=== PATIENT | female | born 1960 | race Caucasian/White ===

== ENCOUNTER 2018-12-11 04:55 | Inpatient (IN) ==
--- NOTE | 2018-12-11 05:02 | Emergency Department Note ---
Disposition Clinical Impression: Acute appendicitis Qualifiers: Acute appendicitis type: unspecified acute appendicitis type Qualified Code(s): K35.80 - Unspecified acute appendicitis Disposition: Admitted As Inpatient Condition: Fair Time of Disposition: 05:53 (accepted by Dr. Cleo Fisher) General Adult HPI - General Stated complaint: right side pain Time Seen by Provider: 12/11/18 05:00 Source: patient Mode of arrival: EMS Limitations: no limitations Nursing Notes Reviewed: Yes Vital Signs Reviewed: Yes - History of Present Illness HPI Narrative: Patient is a 58-year-old female presenting for abdominal pain. Patient with past history of CVA not currently on anti-coagulant medicine or Plavix, hypertension not currently on any medications. Symptoms started approximately 3 days ago, has continued to worsen specifically located to the right lower q uadrant described to be a sharp shooting pain radiating into the back. Pain has been constant but worsening. She has had associated nausea without vomiting no fevers or chills. Normal urination without dysuria or hematuria, normal bowel movements without diarrhea. She denies any change in appetite. She states that this morning she began to have significant increase in pain to the right lower q uadrant and was concerned so called EMS for further evaluation. No similar symptoms in the past. Has had a total hysterectomy. No further abdominal surgeries per patient. No change with symptoms with food. - Related Data Allergies Allergy/AdvReac Type Severity Reaction Status Date / Time No Known Allergies Allergy Verified 08/06/18 18:20 All systems ED: reviewed and negative except as stated. Review of Systems: As Per HPI Constitutional: Denies: fever, chills ENT ED: Denies: congestion Cardiovascular: Denies: chest pain, palpitations Respiratory: Denies: cough, dyspnea Gastrointestinal: Reports: abdominal pain, nausea. Denies: vomiting, diarrhea, hematemesis, melena, hematochezia Genitourinary: Denies: urgency, dysuria, frequency, hematuria Musculoskeletal: Reports: back pain Integumentary: Denies: rash Neurological: Denies: headache, weakness, numbness, confusion Endocrine: Denies: fatigue Past Medical History - Past Medical History Medical history: Reports: CVA, other Psychiatric history: Reports: anxiety - Social History Smoking Status: Current every day smoker Smokeless Tobacco Status: No Alcohol use: Reports: none Drug use: Reports: none Physical Exam General: Conversant. No apparent distress. Follow commands. Appears stated age. Neck: No JVD. Trachea midline. Neck supple. Eyes: PERRL. No scleral icterus. HENT: Normocephalic and atraumatic. Moist mucus membranes. Cardiovascular: Regular rate and rhythm. Normal S1 and S2. No murmurs appreciated. Normal capillary refill. Extremities well perfused with 2+ distal pulses bilaterally. No edema. Pulmonary: Normal and equal breath sounds bilaterally, anteriorly and posteriorly. No wheezes, rales, or rhonchi. Not in respiratory distress. Speaks in full sentences. Abdomen: Soft, nondistended, positive McBurney's point tenderness, with guarding and rebound tenderness, positive Rovsing sign. No bruits or masses. Positive CVA tenderness on the right. Neuro: Alert and oriented x3. No slurred speech. No focal deficits noted. Skin: No rashes noted on visualized skin. Musculoskeletal: No bony abnormalities visualized. Moves all extremities. Psych: Normal mood. Pleasant. Makes appropriate eye contact. - General Limitations: no limitations Course Vital Signs Temperature 98.8 F 12/11/18 04:57 Pulse Rate 100 12/11/18 04:57 Respiratory Rate 18 12/11/18 04:57 Blood Pressure 121/73 12/11/18 04:57 O2 Sat by Pulse Oximetry 96 12/11/18 04:57 Temperature 98.8 F 12/11/18 04:57 Pulse Rate 94 12/11/18 05:51 Respiratory Rate 16 12/11/18 05:51 Blood Pressure 129/70 12/11/18 05:51 O2 Sat by Pulse Oximetry 96 12/11/18 05:51 Oxygen Delivery Oxygen Delivery Room Air Medical Decision Making - [facility] Narrative Medical decision making narrative: Patient is a 50-year-old female who presents with acute abdominal pain. Patient states symptoms began approximately 3 days ago worse overnight. Has had nausea without vomiting. No fevers or chills. On arrival, patient appears uncomfortable but nontoxic, in no acute distress with normal vital signs. Examination shows positive tenderness to the right lower quadrant at the McBurney's point area, she also has positive Rovsing sign, with CVA tenderness on the right. She appears non-peritoneal on examination. Differential diagnosis includes nephrolithiasis, appendicitis, diverticulitis and colitis. 1 L of fluids was given as well as Zofran and fentanyl. CT of the abdomen and pelvis without IV contrast was performed, this was reviewed with the patient as well as my attending, which shows acute appendicitis with concern for possible perforation as well as periappendiceal abscess. Patient does have a slight leukocytosis at 14.3. I spoke with the on-call general surgeon, Dr. Cleo Fisher, she states the patient at this point in time is able to be admitted to her surgical services, she agrees with starting Zosyn. She will be admitted to the surgical services for further surgical intervention and treatment. Patient otherwise has remained stable. I did discuss the CT findings as well as need for admission with the patient, she is agreeable. - Medical Records Medical records reviewed: Yes I reviewed the patient's medical records. - Lab Data Lab results reviewed: Yes I reviewed the patient's lab results. Result diagrams: 12/11/18 05:15 Lab Results 12/11/18 Range/Units 05:15 WBC 14.3 H (4.3-11.1) K/mcL RBC 4.16 (3.82-4.97) M/mcL Hgb 12.7 (11.5-15.4) g/dL Hct 38.4 (35.3-44.9) % MCV 92.3 (83.0-100.0) fL MCH 30.5 (28.0-33.3) pg MCHC 33.1 (31.6-35.5) g/dL RDW 12.7 (11.5-14.5) % Plt Count 251 (140-400) K/mcL MPV 9.5 (9.4-12.4) fL Immature Gran % 0.6 (0-4) % Seg Neutrophils % 85.0 % Lymphocytes % 6.8 % Monocytes % 7.1 % Eosinophils % 0.4 % Basophils % 0.1 % Neutrophils # 12.1 H (1.6-8.9) K/mcL Lymphocytes # 1.0 (0.6-4.6) K/mcL Monocytes # 1.0 (0.0-1.3) K/mcL Eosinophils # 0.1 (0.0-0.6) K/mcL Basophils # 0.0 (0.0-0.2) K/mcL - Radiology Data Radiology results reviewed: Yes I reviewed the patient's radiology results. Abdomen/Pelvis CT 12/11/18 05:29 IMPRESSION: 1. Findings are consistent with acute appendicitis, with a suspected small focal contained perforation within the right lower quadrant and an adjacent 15 x 15 mm periappendiceal abscess within the right lower quadrant. 2. Persistent nonspecific 13 mm soft tissue attenuation nodular lesion exophytic off the left kidney lower pole. Suggest more detailed characterization with a follow-up pre and postcontrast renal mass protocol CT or MRI study. D/ / Marquis Lopez MD / Marquis Lopez MD Interpreting Provider: Marquis Lopez MD
[2018-12-11] MEDS ORDERED: Ondansetron 4 MG/2 ML VIAL IVP ONE (05:10)
[2018-12-11] MEDS ORDERED: 0.9 % Sodium Chloride 1,000 ML IVC ONE (05:10)
[2018-12-11] MEDS ORDERED: *HR* FentaNYL (PF) 100 MCG/2 ML VIAL IVP ONE (05:11)
[2018-12-11 05:34] LABS: Eosinophils % 0.4 %; Hematocrit 38.4 % (35.3-44.9); Hemoglobin 12.7 g/dL (11.5-15.4); Immature Granulocytes % 0.6 % (0-4); Lymphocytes % 6.8 %; Mean Corpuscular HGB Conc 33.1 g/dL (31.6-35.5); Mean Corpuscular Hemoglobin 30.5 pg (28.0-33.3); Mean Corpuscular Volume 92.3 fL (83.0-100.0); Mean Platelet Volume 9.5 fL (9.4-12.4); Monocytes % 7.1 %; Platelet Count 251 K/mcL (140-400); Red Blood Count 4.16 M/mcL (3.82-4.97); Red Cell Distribution Width 12.7 % (11.5-14.5); White Blood Count 14.3 K/mcL (4.3-11.1)
[2018-12-11 05:35] LABS: Basophils % 0.1 %; Eosinophils # 0.1 K/mcL (0.0-0.6); Neutrophils # 12.1 K/mcL (1.6-8.9)
[2018-12-11] MEDS ORDERED: Piperacillin/Tazobactam 3.375 GM in 0.9 % Sodium Chloride Mini Bag 100 ML IVPB ONE (05:49)
[2018-12-11 06:01] LABS: Alanine Aminotransferase 7 Units/L (7-52); Albumin 3.9 g/dL (3.5-5.7); Albumin/Globulin Ratio 1.4 (1.1-2.2); Alkaline Phosphatase 68 Units/L (34-104); BUN/Creatinine Ratio 13 (6-26); Bilirubin,Direct 0.2 mg/dL (0.0-0.2); Bilirubin,Indirect 0.5 mg/dL (0.0-1.2); Bilirubin,Total 0.7 mg/dL (0.3-1.0); Blood Urea Nitrogen 11 mg/dL (6-20); Calcium 8.9 mg/dL (8.6-10.3); Carbon Dioxide 20 mEq/L (23-29); Chloride 103 mEq/L (98-107); Globulin 2.7 g/dL (2.4-3.5); Glucose 140 mg/dL (70-105); Lipase < 3 Units/L (11-82); Osmolality,Calculated 280 (280-300); Potassium 3.1 mEq/L (3.5-5.1); Sodium 134 mEq/L (136-145); Total Protein 6.6 g/dL (6.4-8.9); eGFR For African Americans > 60 (> 60); eGFR For Non-African Americans > 60 (> 60)
--- NOTE | 2018-12-11 06:02 | Emergency Department Note ---
Disposition Clinical Impression: Acute appendicitis Qualifiers: Acute appendicitis type: unspecified acute appendicitis type Qualified Code(s): K35.80 - Unspecified acute appendicitis Disposition: Admitted As Inpatient Condition: Fair Time of Disposition: 05:53 General Adult HPI - General Chief complaint: ED Abdominal Pain Stated complaint: right side pain Time Seen by Provider: 12/11/18 05:00 Source: patient Mode of arrival: EMS Limitations: no limitations Nursing Notes Reviewed: Yes Vital Signs Reviewed: Yes - History of Present Illness Pain Scale: 10 - Related Data Allergies Allergy/AdvReac Type Severity Reaction Status Date / Time No Known Allergies Allergy Verified 08/06/18 18:20 Past Medical History - Past Medical History Medical history: Reports: CVA, other Psychiatric history: Reports: anxiety - Social History Smoking Status: Current every day smoker Smokeless Tobacco Status: No Alcohol use: Reports: none Drug use: Reports: none Physical Exam - General Limitations: no limitations General appearance: alert, in no apparent distress Course Vital Signs Temperature 98.8 F 12/11/18 04:57 Pulse Rate 100 12/11/18 04:57 Respiratory Rate 18 12/11/18 04:57 Blood Pressure 121/73 12/11/18 04:57 O2 Sat by Pulse Oximetry 96 12/11/18 04:57 Temperature 98.8 F 12/11/18 04:57 Pulse Rate 94 12/11/18 05:51 Respiratory Rate 16 12/11/18 05:51 Blood Pressure 129/70 12/11/18 05:51 O2 Sat by Pulse Oximetry 96 12/11/18 05:51 Oxygen Delivery Oxygen Delivery Room Air Medical Decision Making - Medical Records Medical records reviewed: Yes I reviewed the patient's medical records. - Lab Data Lab results reviewed: Yes I reviewed the patient's lab results. Result diagrams: 12/11/18 05:15 12/11/18 05:15 Lab Results 12/11/18 12/11/18 Range/Units 05:15 05:15 WBC 14.3 H (4.3-11.1) K/mcL RBC 4.16 (3.82-4.97) M/mcL Hgb 12.7 (11.5-15.4) g/dL Hct 38.4 (35.3-44.9) % MCV 92.3 (83.0-100.0) fL MCH 30.5 (28.0-33.3) pg MCHC 33.1 (31.6-35.5) g/dL RDW 12.7 (11.5-14.5) % Plt Count 251 (140-400) K/mcL MPV 9.5 (9.4-12.4) fL Immature Gran % 0.6 (0-4) % Seg Neutrophils % 85.0 % Lymphocytes % 6.8 % Monocytes % 7.1 % Eosinophils % 0.4 % Basophils % 0.1 % Neutrophils # 12.1 H (1.6-8.9) K/mcL Lymphocytes # 1.0 (0.6-4.6) K/mcL Monocytes # 1.0 (0.0-1.3) K/mcL Eosinophils # 0.1 (0.0-0.6) K/mcL Basophils # 0.0 (0.0-0.2) K/mcL Sodium 134 L (136-145) mEq/L Potassium 3.1 L (3.5-5.1) mEq/L Chloride 103 (98-107) mEq/L Carbon Dioxide 20 L (23-29) mEq/L BUN 11 (6-20) mg/dL Creatinine 0.84 (0.60-1.20) mg/dL Est GFR ( Amer) > 60 (> 60) Est GFR (Non-Af Amer) > 60 (> 60) BUN/Creatinine Ratio 13 (6-26) Glucose 140 H (70-105) mg/dL Calculated Osmolality 280 (280-300) Calcium 8.9 (8.6-10.3) mg/dL Total Bilirubin 0.7 (0.3-1.0) mg/dL Direct Bilirubin 0.2 (0.0-0.2) mg/dL Indirect Bilirubin 0.5 (0.0-1.2) mg/dL ALT 7 (7-52) Units/L Alkaline Phosphatase 68 (34-104) Units/L Serum Total Protein 6.6 (6.4-8.9) g/dL Albumin 3.9 (3.5-5.7) g/dL Globulin 2.7 (2.4-3.5) g/dL Albumin/Globulin Ratio 1.4 (1.1-2.2) Lipase < 3 L (11-82) Units/L - Radiology Data Radiology results reviewed: Yes I reviewed the patient's radiology results. Abdomen/Pelvis CT 12/11/18 05:29 IMPRESSION: 1. Findings are consistent with acute appendicitis, with a suspected small focal contained perforation within the right lower quadrant and an adjacent 15 x 15 mm periappendiceal abscess within the right lower quadrant. 2. Persistent nonspecific 13 mm soft tissue attenuation nodular lesion exophytic off the left kidney lower pole. Suggest more detailed characterization with a follow-up pre and postcontrast renal mass protocol CT or MRI study. D/ / Marquis Lopez MD / Marquis Lopez MD Interpreting Provider: Marquis Lopez MD Critical Care Time Critical Care Time: Yes Total Critical Care Time: 35 Attestation: Critical care performed: Time is exclusive of separately billable procedures. Time includes: direct patient care, patient reassessment, coordination of patient care, interpretation of data (laboratory data, radiology data, and respiratory data), review of patient's medical records, medical consultation and documentation of patient care. Procedures included in critical care time: Procedures excluded from critical care time: Attestation Statement - Attestation Attestation: I, Lv Joseph MD, personally evaluated this patient and discussed their management with the resident physician. I reviewed the resident's note and agree with the documented findings, medical decision making, and plan of care. 58-year-old female presents to the emergency department with a complaint of right lower quadrant abdominal pain which started 3 days prior to arrival. Pain has been constant and has gotten progressively worse since onset. It is not affected by eating. There has been some nausea but no vomiting. No diarrhea. No fever. No melena, hematemesis, or hematochezia. No anorexia. No urinary symptoms. No history of kidney stones. She has had a complete hysterectomy in the past. On examination patient is a well-developed well-nourished well-appearing female in no acute distress. She is alert and oriented 3. There is no cyanosis or diaphoresis. Breath sounds are clear and equal bilaterally. Heart regular rate and rhythm. Abdomen is soft with present bowel sounds. There is marked right lower quadrant tenderness on direct palpation with guarding and rebound tenderness. Mild right CVA tenderness. WBC 14.3. CT the abdomen and pelvis shows acute appendicitis with a small contained perforation and periappendiceal abscess. Patient was given IV Zosyn. The surgeon monument mason, Dr. Cleo Fisher, was consulted and accepted admission of the patient to her service.
[2018-12-11 06:44] LABS: Aspartate Amino Transferase 10 Units/L (13-39)
[2018-12-11 06:56] LABS: Bilirubin,Urine Negative (Negative); Blood,Urine Small (Negative); Clarity,Urine Clear (Clear); Color,Urine Yellow (Yellow); Glucose,Urine (UA) Normal (Normal); Ketones,Urine Negative (Negative); Leukocyte Esterase,Urine Trace (Negative); Nitrite,Urine Negative (Negative); PH,Urine 6.5 pH Units (5.0-8.0); Protein,Urine Negative (Neg-Trace); Specific Gravity,Urine < 1.005 (1.010-1.025); Urobilinogen,Urine Normal (Normal)
[2018-12-11 06:58] LABS: Bacteria,Urine None Seen per hpf (None-Few); Hyaline Casts,Urine None Seen per lpf (None-Few); RBC,Urine 0-3 per hpf (0-3); Squamous Epithelial Cell,Urine Many per lpf (None-Few)
--- NOTE | 2018-12-11 08:29 | Acute Care Surgery H&P ---
Date of Encounter: 12/11/18 Time of Encounter: 08:29 Assessment and Plan (1) Acute appendicitis Current Visit: Yes Status: Acute The assessment and plan as outlined above was discussed with the patient and/or family members who expressed understanding and agreement. All questions were answered. I explained to the patient she has evidence of acute appendicitis with what looks like a developing phlegmon. I think the most appropriate course to be sta rting IV fluids and start IV antibiotics to help decrease the inflammation in the right lower quadrant. Discussed with the patient and she agrees with the above plan. Qualifiers: Acute appendicitis type: with localized peritonitis Appendicitis gangrene presence: without gangrene Appendicitis perforation presence: without perforation Appendicitis abscess presence: without abscess Qualified Code(s): K35.30 - Acute appendicitis with localized peritonitis, without perforation or gangrene History of Present Illness Chief complaint: RIght lower abdominal pain HPI: Ms. Lancaster is a 58 year old female with a past medical history significant for coronary artery disease, [place], CVA who presents to [facility] with a three-day history of right lower quadrant abdominal pain. Patient states that the pain is continuous and radiates to the mid back. She admits to nausea but denies any vomiting and denies any diarrhea or constipation. She normally has a bowel movement once a day and her last bowel movement was the previous day. She denies any rectal bleeding because of her persistent pain was transferred to [facility] from [facility] for further evaluation. CT scan showing evidence of appendicitis with possible phlegmon. Past Med Surg Social Fam HX - Past Medical History Medical history: CVA, other Additional medical history: Colitis. Psychiatric history: anxiety - Social History Smoking Status: Current every day smoker Packs per day: 1 Smokeless Tobacco Status: No Alcohol use: none Drug use: none Medications and Allergies Allergy/AdvReac Type Severity Reaction Status Date / Time No Known Allergies Allergy Verified 08/06/18 18:20 Review of Systems All systems PM: reviewed and no additional remarkable complaints except as stated All systems PM: The remainder of the systems were reviewed and are negative General Surgery Exam Initial Vital Signs Temp Pulse Resp BP Pulse Ox 98.8 F 100 18 121/73 96 12/11/18 04:57 12/11/18 04:57 12/11/18 04:57 12/11/18 04:57 12/11/18 04:57 - General physical appearance well nourished, no distress - Respiratory normal expansion, normal respiratory effort, clear to auscultation - Cardiovascular Cardiovascular exam: Present: RRR, no murmurs/rubs/gallops - Abdomen Abdomen general surgery: Present: bowel sounds present, soft, tender (Tenderness to palpation in the right lower abdomen) - Neurologic Present: CN 2-12 grossly intact - Musculoskeletal Present: other (no clubbing, cyanosis, or edema) - Psychiatric Psychiatric general surgery: Present: A&Ox3, oriented to person, oriented to place, oriented to time Results - Labs 12/11/18 05:15 12/11/18 05:15 Abnormal lab results WBC 14.3 K/mcL (4.3-11.1) H 12/11/18 05:15 Neutrophils # 12.1 K/mcL (1.6-8.9) H 12/11/18 05:15 Sodium 134 mEq/L (136-145) L 12/11/18 05:15 Potassium 3.1 mEq/L (3.5-5.1) L 12/11/18 05:15 Carbon Dioxide 20 mEq/L (23-29) L 12/11/18 05:15 Glucose 140 mg/dL (70-105) H 12/11/18 05:15 AST 10 Units/L (13-39) L 12/11/18 05:15 Lipase < 3 Units/L (11-82) L 12/11/18 05:15 Ur Specific Finley < 1.005 (1.010-1.025) L 12/11/18 06:40 Urine Blood Small (Negative) H 12/11/18 06:40 Ur Leukocyte Esterase Trace (Negative) H 12/11/18 06:40 Urine Microscopic WBC 3-5 per hpf (0-3) H 12/11/18 06:40 Ur Squamous Epith Cells Many per lpf (None-Few) H 12/11/18 06:40 Diabetes panel 12/11/18 Range/Units 05:15 Sodium 134 L (136-145) mEq/L Potassium 3.1 L (3.5-5.1) mEq/L Chloride 103 (98-107) mEq/L Carbon Dioxide 20 L (23-29) mEq/L BUN 11 (6-20) mg/dL Creatinine 0.84 (0.60-1.20) mg/dL Glucose 140 H (70-105) mg/dL Calcium 8.9 (8.6-10.3) mg/dL AST 10 L (13-39) Units/L ALT 7 (7-52) Units/L Alkaline Phosphatase 68 (34-104) Units/L Albumin 3.9 (3.5-5.7) g/dL Calcium panel 12/11/18 Range/Units 05:15 Calcium 8.9 (8.6-10.3) mg/dL Albumin 3.9 (3.5-5.7) g/dL Pituitary panel 12/11/18 Range/Units 05:15 Sodium 134 L (136-145) mEq/L Potassium 3.1 L (3.5-5.1) mEq/L Chloride 103 (98-107) mEq/L Carbon Dioxide 20 L (23-29) mEq/L BUN 11 (6-20) mg/dL Creatinine 0.84 (0.60-1.20) mg/dL Glucose 140 H (70-105) mg/dL Calcium 8.9 (8.6-10.3) mg/dL Adrenal panel 12/11/18 Range/Units 05:15 Sodium 134 L (136-145) mEq/L Potassium 3.1 L (3.5-5.1) mEq/L Chloride 103 (98-107) mEq/L Carbon Dioxide 20 L (23-29) mEq/L BUN 11 (6-20) mg/dL Creatinine 0.84 (0.60-1.20) mg/dL Glucose 140 H (70-105) mg/dL Calcium 8.9 (8.6-10.3) mg/dL Total Bilirubin 0.7 (0.3-1.0) mg/dL AST 10 L (13-39) Units/L ALT 7 (7-52) Units/L Alkaline Phosphatase 68 (34-104) Units/L Albumin 3.9 (3.5-5.7) g/dL All other labs normal. - Imaging CT scan - abdomen: report reviewed, image reviewed (CT scan image report personally reviewed by me which shows inflammation of the cecum and appendix with no free air or free fluid.)
[2018-12-11] MEDS: Nicotine 21 MG PATCH.TD24 TD SCH (08:31)
[2018-12-11] MEDS: 0.9 % Sodium Chloride 1,000 ML IVC SCH ×2 (09:32→17:46)
[2018-12-11] MEDS: Ketorolac 30 MG/ML VIAL IVP SCH ×2 (11:49→16:56)
[2018-12-11] MEDS: Acetaminophen IV 1,000 MG/100 ML INFUS..BTL IVPB SCH ×2 (11:51→16:56)
[2018-12-11] MEDS: Piperacillin/Tazobactam 3.375 GM in 0.9 % Sodium Chloride Mini Bag 100 ML IVPB SCH (17:02)
[2018-12-11] MEDS: *HR* Heparin 5,000 UNIT/ML VIAL SQ SCH (17:03)
[2018-12-11] MEDS: Ondansetron 4 MG/2 ML VIAL IVP PRN (23:21)
[2018-12-12] MEDS: Acetaminophen IV 1,000 MG/100 ML INFUS..BTL IVPB SCH ×5 (00:31→23:43)
[2018-12-12] MEDS: Piperacillin/Tazobactam 3.375 GM in 0.9 % Sodium Chloride Mini Bag 100 ML IVPB SCH ×4 (00:33→23:44)
[2018-12-12] MEDS: Ketorolac 30 MG/ML VIAL IVP SCH ×5 (00:33→23:44)
[2018-12-12] MEDS: 0.9 % Sodium Chloride 1,000 ML IVC SCH ×2 (01:34→12:32)
[2018-12-12 04:35] LABS: Basophils % 0.2 %; Eosinophils # 0.1 K/mcL (0.0-0.6); Eosinophils % 1.5 %; Hematocrit 32.7 % (35.3-44.9); Immature Granulocytes % 0.4 % (0-4); Lymphocytes # 1.1 K/mcL (0.6-4.6); Lymphocytes % 12.2 %; Mean Corpuscular HGB Conc 32.1 g/dL (31.6-35.5); Mean Corpuscular Hemoglobin 31.3 pg (28.0-33.3); Mean Corpuscular Volume 97.3 fL (83.0-100.0); Mean Platelet Volume 9.6 fL (9.4-12.4); Monocytes # 0.5 K/mcL (0.0-1.3); Monocytes % 5.3 %; Neutrophils # 7.3 K/mcL (1.6-8.9); Platelet Count 174 K/mcL (140-400); Red Blood Count 3.36 M/mcL (3.82-4.97); Red Cell Distribution Width 12.9 % (11.5-14.5); Segmented Neutrophils % 80.4 %; White Blood Count 9.1 K/mcL (4.3-11.1)
[2018-12-12 04:40] LABS: Hemoglobin 10.5 g/dL (11.5-15.4)
[2018-12-12 04:52] LABS: BUN/Creatinine Ratio 11 (6-26); Blood Urea Nitrogen 8 mg/dL (6-20); Calcium 7.9 mg/dL (8.6-10.3); Carbon Dioxide 21 mEq/L (23-29); Chloride 113 mEq/L (98-107); Glucose 91 mg/dL (70-105); Osmolality,Calculated 288 (280-300); Potassium 3.6 mEq/L (3.5-5.1); Sodium 140 mEq/L (136-145); eGFR For African Americans > 60 (> 60); eGFR For Non-African Americans > 60 (> 60)
[2018-12-12] MEDS: *HR* Heparin 5,000 UNIT/ML VIAL SQ SCH ×2 (06:26→18:15)
--- NOTE | 2018-12-12 08:56 | AcuteCareSurgery Progress Note ---
<Rosy Jacobson - Last Filed: 12/12/18 09:57> Date of Encounter: 12/12/18 Time of Encounter: 08:56 - Assessment and Plan (1) Acute appendicitis Current Visit: Yes Status: Acute Acute appendicitis with phlegmon. She is responding well to IV antibiotics. We will add clear liquid diet Continue supportive care and discomfort management while awaiting full return of bowel function Continue G.I. and DVT prophylaxis Amb, SARAH hose, Hep SQ Incentive spirometry 10 times every hour while awake Out of bed to chair TID, do not offer meal trays while in the bed Activity as tolerated Apply ice 20 minutes on 20 minutes off as needed continue IV antibiotics serial abdominal exams repeat a.m. labs Qualifiers: Acute appendicitis type: with localized peritonitis Appendicitis gangrene presence: without gangrene Appendicitis perforation presence: without perfo ration Appendicitis abscess presence: without abscess Qualified Code(s): K35.30 - Acute appendicitis with localized peritonitis, without perforation or gangrene (2) Smoking addiction Current Visit: Yes Status: Acute Smoking cessation education Nicotine patch Subjective Patient reports: feels better, pain is less, voiding w/o difficulty, no flatus, no bowel movement, afebrile Objective Vital Signs - Last 8 Hours Temp Pulse Resp BP Pulse Ox 12/12/18 07:00 98.8 F 87 16 97/61 94 12/12/18 03:48 98.7 F 93 15 101/67 92 Intake and Output 12/11/18 12/12/18 12/12/18 23:59 07:59 15:59 Intake Total 1300 / 2300 1300 / 1300 Output Total 400 / 850 Balance 900 / 1450 1300 / 1300 Intake: IV Fluids 1300 / 2300 1300 / 1300 0.9 % Sodium Chloride 1,000 ML 1000 / 1000 1000 / 1000 @ 125 mls/hr IVC .Q8H CARLOS Rx#: [id number] Ofirmev 1,000 mg/100 ml 1,000 200 / 200 200 / 200 mg In 100 ml @ 400 mls/hr IVPB Q6HR CARLOS Rx#:[id number] Zosyn 3.375 GM In 0.9 % Sodium 100 / 100 100 / 100 Chloride (Mini-Bag +) 100 ML @ 25 mls/hr IVPB Q8HR CARLOS Rx#: [id number] Output: Urine 400 / 850 Other: Meal npo Weight 70.6 kg Blood Glucose* 87 75 Patient Weight 12/12/18 23:59 Weight 70.6 kg - General physical appearance no distress, moderate pain (With palpation) - ENT atraumatic, normocephalic - Neck Neck exam: trachea midline - Respiratory normal expansion, normal respiratory effort - Cardiovascular Cardiovascular exam: Present: RRR - Abdomen Abdomen: Present: bowel sounds present, soft, tender Abdominal Tenderness: RLQ - Integumentary no rash - Neurologic normal sensation - Musculoskeletal normal posture - Psychiatric oriented to time, oriented to person, oriented to place - Labs 12/12/18 04:17 12/12/18 04:17 Diabetes panel 12/12/18 Range/Units 04:17 Sodium 140 (136-145) mEq/L Potassium 3.6 (3.5-5.1) mEq/L Chloride 113 H (98-107) mEq/L Carbon Dioxide 21 L (23-29) mEq/L BUN 8 (6-20) mg/dL Creatinine 0.70 (0.60-1.20) mg/dL Glucose 91 (70-105) mg/dL Calcium 7.9 L (8.6-10.3) mg/dL Calcium panel 12/12/18 Range/Units 04:17 Calcium 7.9 L (8.6-10.3) mg/dL Pituitary panel 12/12/18 Range/Units 04:17 Sodium 140 (136-145) mEq/L Potassium 3.6 (3.5-5.1) mEq/L Chloride 113 H (98-107) mEq/L Carbon Dioxide 21 L (23-29) mEq/L BUN 8 (6-20) mg/dL Creatinine 0.70 (0.60-1.20) mg/dL Glucose 91 (70-105) mg/dL Calcium 7.9 L (8.6-10.3) mg/dL Adrenal panel 12/12/18 Range/Units 04:17 Sodium 140 (136-145) mEq/L Potassium 3.6 (3.5-5.1) mEq/L Chloride 113 H (98-107) mEq/L Carbon Dioxide 21 L (23-29) mEq/L BUN 8 (6-20) mg/dL Creatinine 0.70 (0.60-1.20) mg/dL Glucose 91 (70-105) mg/dL Calcium 7.9 L (8.6-10.3) mg/dL Consult Discharge Plan - Plan Referrals: NONE,PCP [Primary Care Provider] - <Cody Sandoval - Last Filed: 12/12/18 16:50> Date of Encounter: 12/12/18 Objective Vital Signs - Last 8 Hours Temp Pulse Resp BP Pulse Ox 12/12/18 15:36 98.2 F 84 15 121/74 95 12/12/18 11:26 98.4 F 88 16 117/70 96 Intake and Output 12/12/18 12/12/18 12/12/18 07:59 15:59 23:59 Intake Total 1300 / 2980 1680 / 2980 Output Total 300 / 300 Balance 1300 / 2680 1380 / 2680 Intake: IV Fluids 1300 / 2500 1200 / 2500 0.9 % Sodium Chloride 1,000 ML 1000 / 2000 1000 / 2000 @ 125 mls/hr IVC .Q8H [facility] Rx#: [id number] Ofirmev 1,000 mg/100 ml 1,000 200 / 300 100 / 300 mg In 100 ml @ 400 mls/hr IVPB Q6HR [facility] Rx#:[id number] Zosyn 3.375 GM In 0.9 % Sodium 100 / 200 100 / 200 Chloride (Mini-Bag +) 100 ML @ 25 mls/hr IVPB Q8HR [facility] Rx#: [id number] Oral 480 / 480 Output: Urine 300 / 300 Other: Meal Breakfast Percent of Meal Consumed 0% Weight 70.6 kg Blood Glucose* 75 Patient Weight 12/12/18 23:59 Weight 70.6 kg - Labs 12/12/18 04:17 12/12/18 04:17 Diabetes panel 12/12/18 Range/Units 04:17 Sodium 140 (136-145) mEq/L Potassium 3.6 (3.5-5.1) mEq/L Chloride 113 H (98-107) mEq/L Carbon Dioxide 21 L (23-29) mEq/L BUN 8 (6-20) mg/dL Creatinine 0.70 (0.60-1.20) mg/dL Glucose 91 (70-105) mg/dL Calcium 7.9 L (8.6-10.3) mg/dL Calcium panel 12/12/18 Range/Units 04:17 Calcium 7.9 L (8.6-10.3) mg/dL Pituitary panel 12/12/18 Range/Units 04:17 Sodium 140 (136-145) mEq/L Potassium 3.6 (3.5-5.1) mEq/L Chloride 113 H (98-107) mEq/L Carbon Dioxide 21 L (23-29) mEq/L BUN 8 (6-20) mg/dL Creatinine 0.70 (0.60-1.20) mg/dL Glucose 91 (70-105) mg/dL Calcium 7.9 L (8.6-10.3) mg/dL Adrenal panel 12/12/18 Range/Units 04:17 Sodium 140 (136-145) mEq/L Potassium 3.6 (3.5-5.1) mEq/L Chloride 113 H (98-107) mEq/L Carbon Dioxide 21 L (23-29) mEq/L BUN 8 (6-20) mg/dL Creatinine 0.70 (0.60-1.20) mg/dL Glucose 91 (70-105) mg/dL Calcium 7.9 L (8.6-10.3) mg/dL - Attending Attestation I have personally performed a face to face evaluation on this patient. I have reviewed and agree with the care plan. History and Exam by me shows: The patient is seen and evaluated on morning rounds with the acute care surgery team. She continues to have pain in the right lower quadrant. She is receiving IV antibiotic therapy for right lower quadrant phlegmon associated with locally advanced appendicitis. I discussed the risks and benefits of conservative therapy and the procedure necessary to remove the distal small bowel and cecum. Would like to avoid this larger operation possible. We will continue IV antibiotics this time. Cody Sandoval MD FACS
[2018-12-12] MEDS: Nicotine 21 MG PATCH.TD24 TD SCH (09:30)
[2018-12-12] MEDS: Ondansetron 4 MG/2 ML VIAL IVP PRN (15:20)
[2018-12-12] MEDS: *HR* Promethazine 25 MG/ML VIAL IVP PRN (19:47)
[2018-12-13 05:33] LABS: Basophils % 0.3 %; Eosinophils # 0.2 K/mcL (0.0-0.6); Eosinophils % 2.3 %; Hematocrit 33.1 % (35.3-44.9); Hemoglobin 10.9 g/dL (11.5-15.4); Immature Granulocytes % 0.5 % (0-4); Lymphocytes # 0.9 K/mcL (0.6-4.6); Lymphocytes % 11.6 %; Mean Corpuscular HGB Conc 32.9 g/dL (31.6-35.5); Mean Corpuscular Hemoglobin 31.7 pg (28.0-33.3); Mean Corpuscular Volume 96.2 fL (83.0-100.0); Mean Platelet Volume 9.9 fL (9.4-12.4); Monocytes # 0.6 K/mcL (0.0-1.3); Monocytes % 7.5 %; Neutrophils # 5.8 K/mcL (1.6-8.9); Platelet Count 215 K/mcL (140-400); Red Blood Count 3.44 M/mcL (3.82-4.97); Red Cell Distribution Width 12.9 % (11.5-14.5); Segmented Neutrophils % 77.8 %; White Blood Count 7.4 K/mcL (4.3-11.1)
[2018-12-13 05:39] LABS: INR 1.1
[2018-12-13 05:50] LABS: BUN/Creatinine Ratio 9 (6-26); Blood Urea Nitrogen 6 mg/dL (6-20); Carbon Dioxide 22 mEq/L (23-29); Chloride 112 mEq/L (98-107); Glucose 115 mg/dL (70-105); Magnesium 1.9 mg/dL (1.6-2.6); Osmolality,Calculated 287 (280-300); Phosphorous 1.8 mg/dL (2.7-4.5); Potassium 3.3 mEq/L (3.5-5.1); Sodium 139 mEq/L (136-145); eGFR For African Americans > 60 (> 60); eGFR For Non-African Americans > 60 (> 60)
[2018-12-13] MEDS: *HR* Heparin 5,000 UNIT/ML VIAL SQ SCH ×2 (06:06→17:15)
[2018-12-13] MEDS: Ketorolac 30 MG/ML VIAL IVP SCH ×4 (06:06→22:35)
[2018-12-13] MEDS: Acetaminophen IV 1,000 MG/100 ML INFUS..BTL IVPB SCH ×4 (06:07→22:35)
[2018-12-13 06:15] LABS: Platelet Estimate Normal (Normal)
[2018-12-13] MEDS: Piperacillin/Tazobactam 3.375 GM in 0.9 % Sodium Chloride Mini Bag 100 ML IVPB SCH ×3 (09:38→22:39)
[2018-12-13] MEDS: Nicotine 21 MG PATCH.TD24 TD SCH (09:39)
[2018-12-13] MEDS ORDERED: Isovue-370 500 ML BOTTLE IVP ONE ×2 (10:25→10:33)
--- NOTE | 2018-12-13 10:29 | AcuteCareSurgery Progress Note ---
Date of Encounter: 12/13/18 Time of Encounter: 08:00 - Assessment and Plan (1) Acute appendicitis Current Visit: Yes Status: Acute with phlegmon. IV abx for attempt at defervesence. Pt reports minimal clinical improvement. However, leukocytosis has resolved. Will repeat abd/pelvis CT to evaluate for intraabdominal abscess due to acute appendicititis. Continue IV abx. NPO. Qualifiers: Acute appendicitis type: with localized peritonitis Appendicitis gangrene presence: without gangrene Appendicitis perforation presence: without perforation Appendicitis abscess presence: without abscess Qualified Code(s): K35.30 - Acute appendicitis with localized peritonitis, without perforation or gangrene Subjective Patient reports: still having pain, flatus, no bowel movement, nausea, afebrile Narrative: Pt reports feeling poorly. She denies feeling much better since admitted on started on IV abx. Pt c/o RLQ abdominal pain. NPO Objective Vital Signs - Last 8 Hours Temp Pulse Resp BP Pulse Ox 12/13/18 10:18 98.1 F 87 16 102/67 97 12/13/18 08:25 98.2 F 84 16 125/81 95 12/13/18 06:32 98.8 F 68 16 100/61 96 Intake and Output 12/12/18 12/13/18 12/13/18 23:59 07:59 15:59 Intake Total 200 / 3180 950 / 950 Output Total 0 / 100 100 / 100 Balance 200 / 2555 950 / 850 -100 / 850 Intake: IV Fluids 200 / 2700 300 / 300 Ofirmev 1,000 mg/100 ml 1,000 100 / 400 200 / 200 mg In 100 ml @ 400 mls/hr IVPB Q6HR [facility] Rx#:[id number] Zosyn 3.375 GM In 0.9 % Sodium 100 / 300 100 / 100 Chloride (Mini-Bag +) 100 ML @ 25 mls/hr IVPB Q8HR [facility] Rx#: [id number] Oral 650 / 650 Output: Urine 0 / 100 100 / 100 - General physical appearance moderate distress, moderate pain - Eyes PERRL, normal ocular movement - ENT no congestion, dry mucosa - Neck Neck exam: trachea midline, no venous distension - Respiratory normal respiratory effort, clear to auscultation - Cardiovascular Cardiovascular exam: Present: RRR. Absent: JVD - Abdomen Abdomen: Present: bowel sounds present (hypoactive), distended, tender, guarding. Absent: rebound - Integumentary no rash - Neurologic CN 2-12 grossly intact, normal coordination - Musculoskeletal normal posture - Psychiatric oriented to time, oriented to person, oriented to place - Labs 12/13/18 05:03 12/13/18 05:03 Diabetes panel 12/13/18 Range/Units 05:03 Sodium 139 (136-145) mEq/L Potassium 3.3 L (3.5-5.1) mEq/L Chloride 112 H (98-107) mEq/L Carbon Dioxide 22 L (23-29) mEq/L BUN 6 (6-20) mg/dL Creatinine 0.70 (0.60-1.20) mg/dL Glucose 115 H (70-105) mg/dL Calcium 8.0 L (8.6-10.3) mg/dL Calcium panel 12/13/18 Range/Units 05:03 Calcium 8.0 L (8.6-10.3) mg/dL Phosphorus 1.8 L (2.7-4.5) mg/dL Pituitary panel 12/13/18 Range/Units 05:03 Sodium 139 (136-145) mEq/L Potassium 3.3 L (3.5-5.1) mEq/L Chloride 112 H (98-107) mEq/L Carbon Dioxide 22 L (23-29) mEq/L BUN 6 (6-20) mg/dL Creatinine 0.70 (0.60-1.20) mg/dL Glucose 115 H (70-105) mg/dL Calcium 8.0 L (8.6-10.3) mg/dL Adrenal panel 12/13/18 Range/Units 05:03 Sodium 139 (136-145) mEq/L Potassium 3.3 L (3.5-5.1) mEq/L Chloride 112 H (98-107) mEq/L Carbon Dioxide 22 L (23-29) mEq/L BUN 6 (6-20) mg/dL Creatinine 0.70 (0.60-1.20) mg/dL Glucose 115 H (70-105) mg/dL Calcium 8.0 L (8.6-10.3) mg/dL Consult Discharge Plan - Plan Referrals: NONE,PCP [Primary Care Provider] -
[2018-12-13] MEDS ORDERED: Isovue-370 500 ML BOTTLE PO ONE (10:39)
[2018-12-13] MEDS: 0.9 % Sodium Chloride 1,000 ML IVC SCH (12:24)
[2018-12-13] MEDS ORDERED: *HR* FentaNYL (PF) 100 MCG/2 ML VIAL IVP ONE (15:41)
[2018-12-13] MEDS ORDERED: 0.9 % Sodium Chloride 500 ML ONE (15:55)
--- NOTE | 2018-12-13 15:57 | Acute Care Surgery Event Note ---
Date of Encounter: 12/13/18 Time of Encounter: 15:11 Dr. Salinas with page to IR. Updated pt on CT results and plans for IR drain placement today. Pt states understanding, remains NPO. May resume CLD once returns from IR
[2018-12-13] MEDS ORDERED: *HR* Midazolam HCl 2 MG/2 ML VIAL IVP ONE (16:09)
--- NOTE | 2018-12-13 17:01 | Pre-Sedation Evaluation ---
Pre-sedation evaluation - Pre-sedation checklist Date of procedure: 12/13/18 Procedure: CT guided drain placement Recent Vitals: Last Vital Signs Temp 98.4 F 12/13/18 14:50 Pulse 87 12/13/18 16:34 Resp 16 12/13/18 16:34 BP 123/70 12/13/18 16:34 Pulse Ox 100 12/13/18 16:34 Dietary Status: NPO 6 hours prior to procedure Airway Assessment: Patient can open mouth completely, TMJ function normal, Micrognathia (under-bite, receding chin) absent, Neck with adequate range of motion ASA Classification *see protocol: CLASS II-Mild systemic disease Plan of Care: Pt appropriate candidate for procedure/moderate/conscious sedation, Risks/benefits of procedure/sedation discussed w/ patient/family, If not NPO; Risk of intake outweiged by necessity to perform procedure
--- NOTE | 2018-12-13 17:03 | IR Procedure Note ---
Date of procedure: 12/13/18 Consent Obtained: Verbal consent, Written consent Timeout: Correct patient and procedure verified, Correct site verified, Time out performed, Skin prep completed Local anesthetic: Lidocaine 1% Was there an district administrative assistant present: No Estimated blood loss (cc): 1 Complications: None; Tolerated procedure well Procedure Performed: CT guided 10F drain placement into a periappedicial abscess Post Procedure Treatment Plan: please flush catheter with 5 cc saline q shift Specimen: 20 cc pus aspirated
[2018-12-14] MEDS: *HR* Heparin 5,000 UNIT/ML VIAL SQ SCH ×2 (05:02→17:36)
[2018-12-14] MEDS: Acetaminophen IV 1,000 MG/100 ML INFUS..BTL IVPB SCH ×4 (05:02→23:43)
[2018-12-14] MEDS: Ketorolac 30 MG/ML VIAL IVP SCH ×2 (05:03→11:44)
[2018-12-14] MEDS: Nicotine 21 MG PATCH.TD24 TD SCH (07:48)
[2018-12-14] MEDS: Piperacillin/Tazobactam 3.375 GM in 0.9 % Sodium Chloride Mini Bag 100 ML IVPB SCH ×2 (07:49→15:40)
[2018-12-14 10:04] LABS: Basophils % 0.5 %; Eosinophils # 0.3 K/mcL (0.0-0.6); Eosinophils % 3.4 %; Hematocrit 31.4 % (35.3-44.9); Hemoglobin 10.5 g/dL (11.5-15.4); Immature Granulocytes % 0.8 % (0-4); Lymphocytes # 1.3 K/mcL (0.6-4.6); Lymphocytes % 17.1 %; Mean Corpuscular HGB Conc 33.4 g/dL (31.6-35.5); Mean Corpuscular Hemoglobin 30.5 pg (28.0-33.3); Mean Corpuscular Volume 91.3 fL (83.0-100.0); Mean Platelet Volume 9.5 fL (9.4-12.4); Monocytes # 0.5 K/mcL (0.0-1.3); Monocytes % 7.4 %; Neutrophils # 5.2 K/mcL (1.6-8.9); Platelet Count 284 K/mcL (140-400); Red Blood Count 3.44 M/mcL (3.82-4.97); Red Cell Distribution Width 12.7 % (11.5-14.5); Segmented Neutrophils % 70.8 %; White Blood Count 7.3 K/mcL (4.3-11.1)
[2018-12-14 10:22] LABS: BUN/Creatinine Ratio 6 (6-26); Blood Urea Nitrogen 3 mg/dL (6-20); Carbon Dioxide 25 mEq/L (23-29); Chloride 108 mEq/L (98-107); Glucose 126 mg/dL (70-105); Magnesium 1.7 mg/dL (1.6-2.6); Osmolality,Calculated 286 (280-300); Phosphorous 1.9 mg/dL (2.7-4.5); Potassium 3.2 mEq/L (3.5-5.1); Sodium 139 mEq/L (136-145); eGFR For African Americans > 60 (> 60); eGFR For Non-African Americans > 60 (> 60)
[2018-12-14] MEDS: Ondansetron 4 MG/2 ML VIAL IVP PRN ×2 (11:45→17:04)
[2018-12-14] MEDS: 0.9 % Sodium Chloride 1,000 ML IVC SCH (17:01)
--- NOTE | 2018-12-14 17:57 | AcuteCareSurgery Progress Note ---
Date of Encounter: 12/14/18 Time of Encounter: 12:00 - Assessment and Plan (1) Acute appendicitis Current Visit: Yes Status: Acute POD#1 percutaneous drainage of RLQ abscess. IV abx for continued defervesence of inflammation and treatment of infection. Pt reports significant clinical improvement. Leukocytosis has resolved. Advance diet to regular. May DC tomorrow. Qualifiers: Acute appendicitis type: with localized peritonitis Appendicitis gangrene presence: without gangrene Appendicitis abscess presence: with abscess Qualified Code(s): K35.33 - Acute appendicitis with perforation and localized peritonitis, with abscess Subjective Patient reports: no new complaints, feels better, still having pain, pain is less, tolerating liquids well, flatus, no bowel movement, afebrile Objective Vital Signs - Last 8 Hours Temp Pulse Resp BP Pulse Ox 12/14/18 15:12 98.4 F 84 16 143/86 95 12/14/18 10:54 99.4 F 91 18 138/76 96 Intake and Output 12/14/18 12/14/18 12/14/18 07:59 15:59 23:59 Intake Total 800 / 1720 794 / 1720 126 / 1720 Output Total 370 / 1170 800 / 1170 Balance 430 / 550 -6 / 550 126 / 550 Intake: IV Fluids 800 / 1400 474 / 1400 126 / 1400 0.9 % Sodium Chloride 1,000 ML 600 / 1000 274 / 1000 126 / 1000 @ 35 mls/hr IVC .Q24H [facility] Rx#: [id number] Ofirmev 1,000 mg/100 ml 1,000 100 / 200 100 / 200 mg In 100 ml @ 400 mls/hr IVPB Q6HR [facility] Rx#:[id number] Zosyn 3.375 GM In 0.9 % Sodium 100 / 200 100 / 200 Chloride (Mini-Bag +) 100 ML @ 25 mls/hr IVPB Q8HR [facility] Rx#: [id number] Oral 0 / 320 320 / 320 Output: Urine 350 / 1150 800 / 1150 Wound Drainage 20 / 20 0 / 20 Right Lower Abdomen 20 / 20 0 / 20 Other: Meal Lunch Percent of Meal Consumed 100% Weight 77.281 kg Patient Weight 12/14/18 23:59 Weight 77.281 kg - General physical appearance no distress, no pain - Eyes PERRL, normal ocular movement - ENT normal mucosa, no congestion - Neck Neck exam: trachea midline, no venous distension - Respiratory normal respiratory effort, clear to auscultation - Cardiovascular Cardiovascular exam: Present: RRR. Absent: JVD - Abdomen Abdomen: Present: bowel sounds present, soft, tender. Absent: guarding, rebound Abdominal Tenderness: RLQ Additional Comments: IR drain in place with purulent drainage - Neurologic CN 2-12 grossly intact, normal coordination - Musculoskeletal normal posture - Psychiatric oriented to time, oriented to person, oriented to place - Labs 12/14/18 09:41 12/14/18 09:41 Diabetes panel 12/14/18 Range/Units 09:41 Sodium 139 (136-145) mEq/L Potassium 3.2 L (3.5-5.1) mEq/L Chloride 108 H (98-107) mEq/L Carbon Dioxide 25 (23-29) mEq/L BUN 3 L (6-20) mg/dL Creatinine 0.51 L (0.60-1.20) mg/dL Glucose 126 H (70-105) mg/dL Calcium 8.0 L (8.6-10.3) mg/dL Calcium panel 12/14/18 Range/Units 09:41 Calcium 8.0 L (8.6-10.3) mg/dL Phosphorus 1.9 L (2.7-4.5) mg/dL Pituitary panel 12/14/18 Range/Units 09:41 Sodium 139 (136-145) mEq/L Potassium 3.2 L (3.5-5.1) mEq/L Chloride 108 H (98-107) mEq/L Carbon Dioxide 25 (23-29) mEq/L BUN 3 L (6-20) mg/dL Creatinine 0.51 L (0.60-1.20) mg/dL Glucose 126 H (70-105) mg/dL Calcium 8.0 L (8.6-10.3) mg/dL Adrenal panel 12/14/18 Range/Units 09:41 Sodium 139 (136-145) mEq/L Potassium 3.2 L (3.5-5.1) mEq/L Chloride 108 H (98-107) mEq/L Carbon Dioxide 25 (23-29) mEq/L BUN 3 L (6-20) mg/dL Creatinine 0.51 L (0.60-1.20) mg/dL Glucose 126 H (70-105) mg/dL Calcium 8.0 L (8.6-10.3) mg/dL Consult Discharge Plan - Plan Referrals: NONE,PCP [Primary Care Provider] -
[2018-12-15] MEDS: Piperacillin/Tazobactam 3.375 GM in 0.9 % Sodium Chloride Mini Bag 100 ML IVPB SCH ×3 (00:11→15:55)
[2018-12-15] MEDS: Ondansetron 4 MG/2 ML VIAL IVP PRN ×3 (05:58→22:20)
[2018-12-15] MEDS: *HR* Heparin 5,000 UNIT/ML VIAL SQ SCH ×2 (05:58→17:47)
[2018-12-15] MEDS: Acetaminophen IV 1,000 MG/100 ML INFUS..BTL IVPB SCH ×3 (05:59→17:49)
--- NOTE | 2018-12-15 07:12 | Discharge Summary ---
Orders not resulted at time of discharge: Pending orders 12/13/18 16:41 Culture,Anaerobic [] Stat Culture,Body Fl,w Gram Stain [] Stat Date of Encounter: 12/15/18 Time of Encounter: 07:00 - Discharge Diagnosis (1) Acute appendicitis Priority: Primary Status: Acute Qualifiers: Acute appendicitis type: with localized peritonitis Appendicitis gangrene presence: without gangrene Appendicitis abscess presence: with abscess Qualified Code(s): K35.33 - Acute appendicitis with perforation and localized peritonitis, with abscess General Surgery Exam Initial Vital Signs Temp Pulse Resp BP Pulse Ox 98.8 F 100 18 121/73 96 12/11/18 04:57 12/11/18 04:57 12/11/18 04:57 12/11/18 04:57 12/11/18 04:57 - General physical appearance well developed, well nourished, no distress, moderate pain (improved and well controlled). negative: jaundice - Eyes PERRL, normal ocular movement. negative: icteric - ENT no congestion, dry mucosa. negative: nasal discharge - Neck no masses, trachea midline, no lymphadectomy, no venous distension - Respiratory normal respiratory effort, clear to auscultation - Cardiovascular Cardiovascular exam: Present: RRR. Absent: JVD - Abdomen Abdomen general surgery: Present: bowel sounds present, soft, tender. Absent: distended Abdominal Tenderness: Present: RLQ (drain in place) - Genitourinary Present: normal external genitalia - Integumentary Integumentary general surgery: Present: warm and dry - Neurologic Present: CN 2-12 grossly intact, normal coordination - Musculoskeletal Present: normal posture - Psychiatric Psychiatric general surgery: Present: A&Ox3, appropriate - Hospital Course Hospital course: Ms. Lancaster is a 58 year old female - Time Spent with Patient Total time spent providing and/or coordinating discharge services: Greater than 30 minutes - Discharge Medications Prescriptions: New Ciprofloxacin [Cipro] 500 mg PO BID #28 tablet metroNIDAZOLE [Flagyl] 500 mg PO TID #42 tablet Oxycodone HCl/Acetaminophen [Percocet 5-325 mg Tablet] 1 each PO Q4HR PRN 7 Days #28 tablet PRN Reason: Pain Ondansetron HCl [Zofran] 8 mg PO Q8HR PRN #24 tab PRN Reason: Nausea Continued Trazodone HCl 50 mg PO HS Effexor Xr 150 mg PO DAILY Ibuprofen 800 mg PO TID PRN PRN Reason: Pain Tizanidine HCl 4 mg PO TID PRN PRN Reason: Muscle Spasm Home Medications: Effexor Xr 150 mg PO DAILY 12/12/18 [History] Ibuprofen 800 mg PO TID PRN 12/12/18 [History] Tizanidine HCl 4 mg PO TID PRN 12/12/18 [History] Trazodone HCl 50 mg PO HS 12/12/18 [History] Ciprofloxacin [Cipro] 500 mg PO BID #28 tablet 12/15/18 [Rx] Ondansetron HCl [Zofran] 8 mg PO Q8HR PRN #24 tab 12/15/18 [Rx] Oxycodone HCl/Acetaminophen [Percocet 5-325 mg Tablet] 1 each PO Q4HR PRN 7 Days #28 tablet 12/15/18 [Rx] metroNIDAZOLE [Flagyl] 500 mg PO TID #42 tablet 12/15/18 [Rx] Allergies/Adverse Reactions: Allergy/AdvReac Type Severity Reaction Status Date / Time No Known Allergies Allergy Verified 08/06/18 18:20 Date of admission: 12/11/18 08:30 Primary care physician: PCP NONE Consults: 12/13/18 15:10 Consult to Interventional Radiology [CONS] Stat Consulting Provider: Radiology Interventional Cols Reason for Consult: intraabdominal abscess Call Completed: Yes Discharging clinician: Garcia Fisher Anticipated date of discharge: 12/16/18 Labs on day of discharge: Labs from last 24 hours 12/14/18 12/14/18 09:41 09:41 WBC 7.3 RBC 3.44 L Hgb 10.5 L Hct 31.4 L MCV 91.3 MCH 30.5 MCHC 33.4 RDW 12.7 Plt Count 284 MPV 9.5 Immature Gran % 0.8 Seg Neutrophils % 70.8 Lymphocytes % 17.1 Monocytes % 7.4 Eosinophils % 3.4 Basophils % 0.5 Neutrophils # 5.2 Lymphocytes # 1.3 Monocytes # 0.5 Eosinophils # 0.3 Basophils # 0.0 Sodium 139 Potassium 3.2 L Chloride 108 H Carbon Dioxide 25 BUN 3 L Creatinine 0.51 L Est GFR ( Amer) > 60 Est GFR (Non-Af Amer) > 60 BUN/Creatinine Ratio 6 Glucose 126 H Calculated Osmolality 286 Calcium 8.0 L Phosphorus 1.9 L Magnesium 1.7 Preliminary micro results at discharge 12/13/18 16:41 Body Fluid Culture - Preliminary Other-Specify in Comments - Impressions ITS Impressions Abdomen/Pelvis CT 12/11/18 05:29 IMPRESSION: 1. Findings are consistent with acute appendicitis, with a suspected small focal contained perforation within the right lower quadrant and an adjacent 15 x 15 mm periappendiceal abscess within the right lower quadrant. 2. Persistent nonspecific 13 mm soft tissue attenuation nodular lesion exophytic off the left kidney lower pole. Suggest more detailed characterization with a follow-up pre- and postcontrast renal mass protocol CT or MRI study. D/ / 12/11/2018 08:57:48 Marquis Lopez MD / rachelle Interpreting Provider: Marquis Lopez MD Abdomen/Pelvis CT 12/13/18 13:06 IMPRESSION: 1. Status post ruptured appendicitis with interval with a right lower quadrant abscess measuring 5.1 x 3.4 x 3.4 cm. 2. Cholelithiasis with nonspecific gallbladder wall thickening in the setting of periportal edema. 3. Evidence of 3rd spacing with small bilateral effusions and small volume ascites. D/ / 12/13/2018 13:20:45 Meera Rogers MD / shena Interpreting Provider: Meera Rogers MD - Patient Status Disposition: Home, Self-Care Condition: Fair Functional capacity at discharge: independent ambulation Overall status at discharge: patient is progressing back to baseline - Discharge Instructions Instructions: [facility] ([place]) Follow Up With: NONE,PCP [Primary Care Provider] - Garcia Polk [Partnered Physician] - Additional Instructions: Call [facility] at [phone] to schedule a follow-up appointment with Acute Care Surgery (Jaime/Brad). Pt to follow-up in two weeks. - Diet and Activity Activity: increase activity as tolerated Diet: advance to your usual diet
[2018-12-15] MEDS: Nicotine 21 MG PATCH.TD24 TD SCH (07:49)
[2018-12-15] MEDS: 0.9 % Sodium Chloride 1,000 ML IVC SCH (12:11)
--- NOTE | 2018-12-15 15:19 | Acute Care Surgery Event Note ---
Date of Encounter: 12/15/18 Time of Encounter: 07:00 Discharge cancelled for today. Pt reports that she cannot fill her prescriptions for antibiotics until . She cannot be discharged in she cannot take abx at home. Social work consult placed for assistance with this problem. Pt DC tomorrow if medicine dilemma is solved.
[2018-12-15] MEDS: *HR* Promethazine 25 MG/ML VIAL IVP PRN (17:46)
[2018-12-15] MEDS ORDERED: *HR* OxyCODONE Immed Rel 5 MG TABLET PO PRN (19:20)
[2018-12-16] MEDS: Acetaminophen IV 1,000 MG/100 ML INFUS..BTL IVPB SCH ×2 (00:27→06:09)
[2018-12-16] MEDS: Piperacillin/Tazobactam 3.375 GM in 0.9 % Sodium Chloride Mini Bag 100 ML IVPB SCH ×3 (00:52→18:06)
[2018-12-16 04:36] VITALS: BP 112/73
[2018-12-16] MEDS: *HR* Heparin 5,000 UNIT/ML VIAL SQ SCH (06:08)
[2018-12-16] MEDS: Nicotine 21 MG PATCH.TD24 TD SCH (08:10)
--- NOTE | 2018-12-16 09:03 | AcuteCareSurgery Progress Note ---
Date of Encounter: 12/16/18 Time of Encounter: 08:00 - Assessment and Plan (1) Hypokalemia Current Visit: Yes Status: Acute The patient is currently receiving supplementation for hypokalemia. This was likely secondary to vomiting. (2) Acute appendicitis with appendiceal abscess Current Visit: Yes Status: Acute The patient underwent CAT scan directed interventional radiology drainage of appendiceal abscess on Sunday. She is doing quite well and has had normalization of her white blood cell count and is afebrile. She should be able to transition to oral antibiotics, however, her current financial and social situation does not allow her the ability to afford her medicines. She is meeting with social work today to try and find a solution to this issue. Subjective Narrative: The patient is seen and evaluated on morning rounds with the acute care surgery team. She is doing quite well after interventional radiology CAT scan directed drainage of appendiceal abscess. It is absolutely essential that she be maintained on antibiotics after discharge. She currently has some financial and social restrictions that will not allow her to continue antibiotics at home. We will work closely with our social work colleagues to try and arrange for appropriate therapy. Continue IV antibiotics and regular diet. Continue abscess drainage. Objective Vital Signs - Last 8 Hours Temp Pulse Resp BP Pulse Ox 12/16/18 04:35 98.1 F 83 15 112/73 96 Intake and Output 12/15/18 12/16/18 12/16/18 23:59 07:59 15:59 Intake Total 440 / 1710 300 / 300 0 / 300 Output Total 505 / 530 0 / 0 Balance -65 / 1180 300 / 300 0 / 300 Intake: IV Fluids 200 / 1230 300 / 300 Ofirmev 1,000 mg/100 ml 1,000 100 / 300 200 / 200 mg In 100 ml @ 400 mls/hr IVPB Q6HR [facility] Rx#:[id number] Zosyn 3.375 GM In 0.9 % Sodium 100 / 300 100 / 100 Chloride (Mini-Bag +) 100 ML @ 25 mls/hr IVPB Q8HR [facility] Rx#: [id number] Oral 240 / 480 0 / 0 Output: Urine 500 / 500 0 / 0 Wound Drainage 0 / 0 Right Lower Abdomen 0 / 0 Other: # Voids 1 Weight 78.1 kg Patient Weight 12/16/18 23:59 Weight 78.1 kg - General physical appearance well developed, well nourished, no pain - Respiratory normal expansion, normal respiratory effort, clear to auscultation - Cardiovascular Cardiovascular exam: Present: RRR, no murmurs/rubs/gallops - Abdomen Abdomen: Present: bowel sounds present, soft, non tender (CAT scan right lower quadrant drain in place and draining purulent material as expected from the appendiceal abscess) - Neurologic CN 2-12 grossly intact, normal coordination, normal sensation - Psychiatric oriented to time, oriented to person, oriented to place, speech is normal, memory intact - Labs 12/14/18 09:41 12/14/18 09:41 Consult Discharge Plan - Plan Instructions: [facility] (DC) Additional Instructions: -Empty and record output twice daily. -Flush the line with 10 ml of sterile saline twice daily. (flush towards the bu lb). You will need to subtract the 10 ml flush amount from your output daily (for example if your empty 50 ml after your drain flush, you record 40 ml output on the record). -Change your dressing daily around your drain. REmove dressing, shower with antibacterial soap. Pat dry. Replace two split gauze (facing opposite directions for support) and tape to secure. Do not let the drain dangle from your body. Keep secured with a safety pin to clothing. Keep the bulb to suction (collapsed) at all times. -Take antibiotics as directed. Do not stop without talking to your provider. -Do not drink alcohol while taking metronidazole. Drinking alcohol while taking metronidazole can result in violent abdominal pain and vomiting. Refrain from alcohol use for 48 hours after completing metronidazole. Prescriptions: Ciprofloxacin [Cipro] 500 mg PO BID #28 tablet Prescription Printed metroNIDAZOLE [Flagyl] 500 mg PO TID #42 tablet Prescription Printed Oxycodone HCl/Acetaminophen [Percocet 5-325 mg Tablet] 1 each PO Q4HR PRN 7 Days #28 tablet PRN Reason: Pain Prescription Printed Ondansetron HCl [Zofran] 8 mg PO Q8HR PRN #24 tab PRN Reason: Nausea Prescription Printed
== END 2018-12-16 20:01 | disposition home or self-care (01) | DRG 373 ==
LOC: 3ANU 04:55 → EMEROOARM 04:55 → 3ANU 06:19
PROVIDERS: ADMIT Surgery; ATTEND Surgery
PROC: IRDRAIN (2018-12-13 15:00)

== ENCOUNTER 2019-06-06 21:43 | Observation (INO) ==
[2019-06-06 22:34] LABS: Bilirubin,Urine Negative (Negative); Blood,Urine Moderate (Negative); Clarity,Urine Clear (Clear); Color,Urine Yellow (Yellow); Glucose,Urine (UA) Normal (Normal); Ketones,Urine Negative (Negative); Leukocyte Esterase,Urine Negative (Negative); Nitrite,Urine Negative (Negative); Protein,Urine Negative (Neg-Trace); Specific Gravity,Urine 1.006 (1.010-1.025); Urobilinogen,Urine Normal (Normal)
[2019-06-06 22:35] LABS: Basophils % 0.4 %; Eosinophils # 0.1 K/mcL (0.0-0.6); Eosinophils % 1.9 %; Hematocrit 43.6 % (35.3-44.9); Hemoglobin 14.7 g/dL (11.5-15.4); Immature Granulocytes % 0.3 % (0-4); Lymphocytes % 28.3 %; Mean Corpuscular HGB Conc 33.7 g/dL (31.6-35.5); Mean Corpuscular Hemoglobin 30.9 pg (28.0-33.3); Mean Corpuscular Volume 91.8 fL (83.0-100.0); Mean Platelet Volume 9.2 fL (9.4-12.4); Monocytes # 0.6 K/mcL (0.0-1.3); Neutrophils # 4.3 K/mcL (1.6-8.9); Platelet Count 368 K/mcL (140-400); Red Blood Count 4.75 M/mcL (3.82-4.97); Segmented Neutrophils % 61.1 %
[2019-06-06 22:37] LABS: Bacteria,Urine None Seen per hpf (None-Few); Hyaline Casts,Urine None Seen per lpf (None-Few); RBC,Urine 0-3 per hpf (0-3); Squamous Epithelial Cell,Urine Moderate per lpf (None-Few); WBC,Urine 0-3 per hpf (0-3)
[2019-06-06 22:44] LABS: Amphetamine Screen,Urine Negative ng/mL (Cutoff=1000); Barbiturate Screen,Urine Negative ng/mL (Cutoff=200); Benzodiazepines Screen,Urine Negative ng/mL (Cutoff=200); Cannabinoid Screen,Urine Negative ng/mL (Cutoff = 50); Cocaine Screen,Urine Negative ng/mL (Cutoff= 300); Opiate Screen,Urine Negative ng/mL (Cutoff=300); Phencyclidine Screen,Urine Negative ng/mL (Cutoff=25)
[2019-06-06 23:20] LABS: Acetaminophen < 10 mcg/mL (10-20); Alanine Aminotransferase 18 Units/L (7-52); Albumin 4.4 g/dL (3.5-5.7); Albumin/Globulin Ratio 1.5 (1.1-2.2); Alkaline Phosphatase 72 Units/L (34-104); Aspartate Amino Transferase 19 Units/L (13-39); BUN/Creatinine Ratio 8 (6-26); Bilirubin,Total 0.7 mg/dL (0.3-1.0); Blood Urea Nitrogen 6 mg/dL (6-20); Calcium 9.7 mg/dL (8.6-10.3); Carbon Dioxide 24 mEq/L (23-29); Chloride 106 mEq/L (98-107); Ethanol < 10 mg/dL (Less than 10); Glucose 117 mg/dL (70-105); Osmolality,Calculated 281 (280-300); Potassium 3.7 mEq/L (3.5-5.1); Salicylate < 2.5 mg/dL (15.0-30.0); Sodium 136 mEq/L (136-145); Thyroid Stimulating Hormone 1.116 mcIU/mL (0.340-5.600); Total Protein 7.4 g/dL (6.4-8.9); Troponin I < 0.03 ng/mL (< 0.04); eGFR For African Americans > 60 (> 60); eGFR For Non-African Americans > 60 (> 60)
[2019-06-07] MEDS ORDERED: Naloxone 0.4 MG/ML INJ IVP PRN (03:08)
[2019-06-07] MEDS ORDERED: Ondansetron 4 MG/2 ML VIAL IVP PRN (03:08)
[2019-06-07] MEDS: 0.9 % Sodium Chloride 1,000 ML IVC SCH (04:20)
[2019-06-07 04:25] LABS: Magnesium 2.2 mg/dL (1.6-2.6); Phosphorous 4.3 mg/dL (2.7-4.5)
[2019-06-07 04:52] LABS: Folate 12.6 ng/mL (3.0-16.0)
[2019-06-07] MEDS ORDERED: Haloperidol Lactate 5 MG/ML VIAL IVP ONE (05:23)
[2019-06-08] MEDS ORDERED: *HR* LORazepam 2 MG/ML VIAL IVP PRN (01:50)
[2019-06-08] MEDS ORDERED: *HR* LORazepam 2 MG/ML VIAL IM STA (01:50)
[2019-06-08] MEDS: 0.9 % Sodium Chloride 1,000 ML IVC SCH (14:11)
[2019-06-09 12:09] VITALS: BP 112/78
== END 2019-06-09 17:40 | disposition home or self-care (01) ==
LOC: 3ANU 21:43 → EMEROOARM 21:43 → SUATTDRO 06-07 03:00 → 3ANU 06-07 03:37
PROVIDERS: ADMIT Family Medicine; ATTEND Internal Medicine